=== PATIENT | female | born 1995 | race African-American/Black ===

== ENCOUNTER 2022-10-20 10:56 | Emergency (ER) | payer OTHER, SELFPAY ==
--- NOTE | ~2022-10-20 | US_ITS ---
EXAMINATION: US VENOUS ULTRASOUND WITH DOPPLER LOWER EXTREMITY, LEFT CLINICAL INFORMATION: Left calf tenderness and pain. COMPARISON: None available. TECHNIQUE: Ultrasound of the deep veins is performed from the hip to the calf with compression sonography and color and pulse Doppler assessment. Spectral analysis with color-flow imaging is performed. FINDINGS: There is normal venous compression and respiratory variation and augmented flow. The visualized common femoral vein, superficial femoral vein, profunda femoral vein, popliteal vein, and the trifurcation region shows no evidence of deep venous thrombosis. There is no significant popliteal fossa cyst. If the patient's symptoms persist, followup ultrasound in 5 days 7 days might be of value to exclude proximal propagation from a non-visualized calf vein. US/US venous duplex LE LT IMPRESSION: No DVT demonstrated in the left lower extremity.
[2022-10-20 11:00] VITALS: BP 120/79; PULSE 70; RESP 17; TEMP 36.6; O2SAT 100; BMI 28.0
--- NOTE | 2022-10-20 11:08 | ED.GENADULT ---
HPI - General Adult General Chief complaint: Extremity Problem Stated complaint: L leg pain Time Seen by Provider: 10/20/22 11:05 Source: patient Mode of arrival: ambulatory Limitations: no limitations History of Present Illness HPI narrative: Patient is a 26-year-old female with no significant past history presenting with left calf pain and swelling for the past week. She reports that her pain began 1 week ago, denies any initial injury or trauma. She states that over the past several days she has noted swelling to her left calf as well. She reports that she has a copper IUD, smokes marijuana daily, is unsure of any family history of clots or clotting disorders as she is not close with her family. She denies any recent surgeries or immobilization, denies any history of VTEs, hemoptysis. She denies any chest pain or shortness of breath. Related Data Allergies Allergy/AdvReac Type Severity Reaction Status Date / Time No Known Allergies Allergy Verified 10/20/22 11:15 Review of Systems Review of Systems: As per HPI Yes all other systems are reviewed and are negative Constitutional: Constitutional: Reports as per HPI [facility] Social History Social History Advance Directives: No Physical Exam ED Vital Signs: Vital Signs - 24 hr 10/20/22 11:00 10/20/22 11:40 Temperature 97.9 F 98.0 F Pulse Rate 70 68 Respiratory Rate 17 16 Blood Pressure 120/79 115/64 Pulse Oximetry 100 100 Oxygen Delivery Method Room Air Room Air BMI result Body Mass Index 28.0 Const General: cooperative, healthy appearing and no acute distress Orientation/consciousness: oriented to person, oriented to place, oriented to time and patient oriented x3 Limitations: no limitations [facility] Head: Yes normocephalic and Yes atraumatic Ears: external ears normal General nose exam: Normal external nose present Face and sinus: Yes face symmetric Mouth: oropharynx normal and moist mucous membranes Throat: Yes uvula midline Eyes Pupils: Equal, round and reactive pupils present Neck Neck: Yes normal visual inspection and Yes supple Resp Effort & Inspection: normal respiratory effort and able to speak in complete sentences Auscultation: clear to auscultation bilaterally Cardio Rate: regular rate Rhythm: regular rhythm Heart sounds: S1 normal heart sound present and S2 normal heart sound present GI Palpation (GI): Soft to palpation and nontender Auscultation: normoactive bowel sounds General: Yes no CVA tenderness Back/Spine/Pelvis Back: no CVA tenderness Skin General skin exam: elasticity normal and turgor normal Neuro General: oriented to person, oriented to place, oriented to time, patient oriented x3, moves all extremities, no focal motor deficits and CN's II-XI intact bilaterally Cranial nerves: Yes Equal, round and reactive pupils present Cognition (Neuro): normal cognition Extrem Other: negative Prado test General: Yes full ROM, Yes capillary refill normal, Yes no pedal edema and Yes calf tenderness (left) Left lower extremity: knee Details: tenderness Location: not of the popliteal fossa, lower leg Details: tenderness Location: of the posterior calf, localized swelling Location: of the proximal lower leg (mild) and other (positive Homans); no erythema, no palpable cords and no ecchymosis and foot Details: normal capillary refill and motor-sensory exam Details: light-touch normal; abnormal to inspection (mild swelling) Psych Mental Status: mental status grossly normal Affect: normal affect Thought process: Normal thought process present Course Course Course Narrative: 12:35 FINDINGS: There is normal venous compression and respiratory variation and augmented flow. The visualized common femoral vein, superficial femoral vein, profunda femoral vein, popliteal vein, and the trifurcation region shows no evidence of deep venous thrombosis. ? There is no significant popliteal fossa cyst. If the patient's symptoms persist, followup ultrasound in 5 days 7 days might be of value to exclude proximal propagation from a non-visualized calf vein. US/US venous duplex LE LT IMPRESSION: No DVT demonstrated in the left lower extremity. Advised patient of u/s results and discussed that based on physical exam findings, pain is likely related to calf strain. Will discharge home, advised Tylenol/ibuprofen, alternate ice/heat, gentle massage, follow up with PCP. Return precautions discussed at bedside. Medical Decision Making Medical Decision Making MDM Narrative: Patient is a 26-year-old female with no significant past history presenting with left calf pain and swelling for the past week. On exam patient is nontoxic appearing, VS WNL, no tachycardia or tachypnea, afebrile, mild left calf swelling and tenderness without erythema or calor, positive Homans. Patient is moderate Wells risk, so will obtain left lower extremity ultrasound. Concern for DVT vs muscle strain vs contusion. Unlikely cellulitis, abscess. No bullae, immunocompromise, or pain out of proporiton concerning for necrotizing fasciitis, no concern for compartment syndrome or achilles tendon rupture. Plan: LLE US, urine hcg Please refer to course for remaining clinical decision making. Differential Diagnosis Differential Diagnoses: The differential diagnosis associated with the presentation includes As above. Lab Data MDM Lab Attestation statement: I reviewed the patient's lab results. Labs: Lab Results 10/20/22 Range/Units 11:36 Urine Test NEGATIVE (NEGATIVE) Independent Interpretation I performed an independent interpretation of an: Ultrasound Interpretation: I independently reviewed the ultrasound and agree with the radiologist's interpretation. Radiology Impression Discussion of test interpretation with radiology: I have reviewed the radiologist's reading. Radiologist Impression: FINDINGS: There is normal venous compression and respiratory variation and augmented flow. The visualized common femoral vein, superficial femoral vein, profunda femoral vein, popliteal vein, and the trifurcation region shows no evidence of deep venous thrombosis. ? There is no significant popliteal fossa cyst. If the patient's symptoms persist, followup ultrasound in 5 days 7 days might be of value to exclude proximal propagation from a non-visualized calf vein. US/US venous duplex LE LT IMPRESSION: No DVT demonstrated in the left lower extremity. External Record Review External record reviewed: Inpatient record, Office record and Outpatient record Discharge Plan Discharge Clinical Impression: Strain of left calf muscle Patient Disposition: Home, Self-Care Instructions: Muscle Strain (DC) Additional Instructions: You were evaluated in the emergency department today for left calf pain. Your ultrasound did not show evidence of a blood clot. Please rest, alternate ice and heat, and resume normal activities as tolerated. You can take 600 mg ibuprofen every 6 hours or Tylenol 650 mg every 6 hours as needed for pain. If needed, you can alternate these medications so that you take 1 medication every 3 hours. For instance at noon take ibuprofen, then at 3:00 p.m. take Tylenol, then at 6:00 p.m. take ibuprofen. Please schedule an appointment for follow-up with her primary care provider this week. Return to the emergency department if you experience worsening pain, numbness, tingling, change of color in your toes, chest pain, shortness of breath, or any other concerning symptoms. Stand Alone Forms: Work/School Release
--- OUTSIDE RECORDS SUMMARY | 2022-10-20 11:31 | XMS_ITS | Continuity of Care Document ---
Author Name Unknown Organization [facility] Address [address] [place] [address]- Care Team Providers Care Clinical Data Management Manager Name Role Phone Grey GARZA, Yesy Zheng Primary Care Physicia n Encounter [facility] Date(s): 10/11/19 - 11/10/19 [facility] [address] [address]- [facility] Attending Physician: Sebastián Forde Admitting Physician: Sebastián Forde Referring Physician: Sebastián Forde Allergies, Adverse Reactions, Alerts Substance Reaction Severity Status Seafood Active Medications azithromycin 500 mg oral tablet 2 tablet = 1,000 mg, By Mouth, Once, # 2 tablet, 0 Refills, Soft Stop, 09/07/17 10:44:40 EDT Start Date: 09/07/17 Status: Ordered Nexplanon 68 mg subcutaneous implant 1 each = 68 mg, Subcutaneous Infusion, Once, 0 Refills, Maintenance, 08/11/16 13:01:26 Start Date: 08/11/16 Status: Ordered ParaGard intrauterine device 0 Refills, Maintenance, 09/18/19 16:13:00 EDT Start Date: 09/18/19 Status: Ordered Sulfamethoxazole For UTI, 0 Refills, Maintenance, 09/07/17 9:44:11 EDT Start Date: 09/07/17 Status: Ordered Social History Social History Type Response Smoking Status Former smoker, quit more than 30 days ago entered on: 09/18/19 Sex
--- OUTSIDE RECORDS SUMMARY | 2022-10-20 11:31 | XMS_ITS | Continuity of Care Document ---
Author Name Unknown [facility] Address [address] [address]- Care Team Providers Care Sales Management Trainee Name Role Phone Sharon Hoang MD, V Primary Care Physician [phone] Encounter [facility] Date(s): 05/17/22 - 06/16/22 [facility] [address] [address]- Attending Physician: Sebastián Forde Admitting Physician: Sebastián Forde Referring Physician: Sebastián Forde Allergies, Adverse Reactions, Alerts Substance Reaction Severity Status Seafood Active Medications ParaGard intrauterine device 0 Refills, Maintenance, 09/18/19 16:13:00 EDT Start Date: 09/18/19 Status: Ordered Problem List Condition Confirmation Course Effective Dates Status Health St atus Informant Multiple allergies Confirmed Active Allergic rhinitis Confirmed Active GERD (gastroesophageal reflux disease) Confirmed Active Reduced libido Confirmed Active Social History Social History Type Response Smoking Status Former smoker, quit more than 30 days ago entered on: 09/18/19 Sex Patient Care team information Care Team Personnel Name: Sharon Hoang MD, V Position: [facility] Primary Care Physician Member Role: PCP Address: Address: [address] [place] [address] Care Team Related Persons Name: JUAN MANUEL AKBAR Address: [address] [place] [address] Name: TAWANNA SAN Name: TIFFANIE YO Address: home [address] [place] [address] Name: TIFFANIE YO Name: MATILDE RUBY
--- OUTSIDE RECORDS SUMMARY | 2022-10-20 11:31 | XMS_ITS | Continuity of Care Document ---
Author Name Unknown Organization [facility] Address [address] [place] [address]- Care Team Providers Care Paper Sorter And Counter Name Role Phone Grey GARZA, Yesy Zheng Primary Care Physicia n Encounter [facility] Date(s): 12/25/20 - 01/24/21 [facility] [address] [place] [id number] Allergies, Adverse Reactions, Alerts Substance Reaction Severity Status Seafood Active Medications azithromycin 500 mg oral tablet 2 tablet = 1,000 mg, By Mouth, Once, # 2 tablet, 0 Refills, Soft Stop, 09/07/17 10:44:40 EDT Start Date: 09/07/17 Status: Ordered ParaGard intrauterine device 0 Refills, Maintenance, 09/18/19 16:13:00 EDT Start Date: 09/18/19 Status: Ordered Social History Social History Type Response Smoking Status Former smoker, quit more than 30 days ago entered on: 09/18/19 Sex
--- OUTSIDE RECORDS SUMMARY | 2022-10-20 11:31 | XMS_ITS | Continuity of Care Document ---
Author Name Unknown Organization [facility] Address [address] [place] [address]- Care Team Providers Care Flag Maker Name Role Phone Yesy Edmonds MD Primary Care Physicia n [place] [facility] [place] 07/09/19 - 07/09/[address] [address]- [facility] Discharge Disposition: A-D/C Walkout Attending Physician: Not on Staff, Attending MD Admitting Physician: Not on Staff, Admitting MD Referring Physician: Not on Staff, Referring MD Allergies, Adverse Reactions, Alerts Substance Reaction Severity Status Seafood Active Medications azithromycin 500 mg oral tablet 2 tablet = 1,000 mg, By Mouth, Once, # 2 tablet, 0 Refills, Soft Stop, 09/07/17 10:44:40 EDT Start Date: 09/07/17 Status: Ordered Nexplanon 68 mg subcutaneous implant 1 each = 68 mg, Subcutaneous Infusion, Once, 0 Refills, Maintenance, 08/11/16 13:01:26 Start Date: 08/11/16 Status: Ordered Sulfamethoxazole For UTI, 0 Refills, Maintenance, 09/07/17 9:44:11 EDT Start Date: 09/07/17 Status: Ordered Vital Signs Most recent to oldest [Reference Range]: 1 2 Weight 66.3 kg (07/09/19 8:12 PM) 66.3 kg (07/09/19 8:10 PM) Oxygen Saturation [94-100 %] 100 % (07/09/19 8:10 PM) 100 % (07/09/19 7:52 PM) Pulse Rate [55-90 bpm] 73 bpm (07/09/19 8:10 PM) 82 bpm (07/09/19 7:52 PM) Blood Pressure [90-138/55-84 mm Hg] 119/ 65mm Hg (07/09/19 8:10 PM) Respiratory Rate [16-30 br/min] 16 br/mi n (07/09/19 8:10 PM) 18 br/min (07/09/19 7:52 PM) Temperature [96.8-100.4 DegF] 98.4 DegF (07/09/19 8:10 PM) Mode of Delivery (Oxygen) Room air (07/09/19 8:10 PM) room air (07/09/19 7:52 PM) Blood pressure sites Arm, right (07/09/19 8:10 PM) Temperature Route Oral (07/09/19 8:10 PM) Dry Weight 66.3 kg (07/09/19 8:12 PM) 66.3 kg (07/09/19 8:10 PM) Weight Obtained Via Standing scale (07/09/19 8:10 PM) Dry Weight Obtained Via Standing scale (07/09/19 8:10 PM) Social History Social History Type Response Smoking Status Never smoker; Tobacc o user in household: No entered on: 05/30/14 Sex
--- OUTSIDE RECORDS SUMMARY | 2022-10-20 11:31 | XMS_ITS | Continuity of Care Document ---
Author Name Unknown Organization [facility] Address [address] [place] [address]- Care Team Providers Care Php Magento Developer Name Role Phone Viktor GARZA, Sharon Wooten Primary Care Physician Encounter [facility] Date(s): 03/04/22 - 03/11/22 [facility] [address] [place] [place] [address] Encounter Diagnosis GERD (gastroesophageal reflux disease)(Discharge Diagnosis) - 03/04/22 Multiple allergies(Discharge Diagnosis) - 03/04/22 Allergic rhinitis(Discharge Diagnosis) - 03/04/22 Reduced libido(Discharge Diagnosis) - 03/04/22 Attending Physician: Sharon Hoang MD, V Allergies, Adverse Reactions, Alerts Substance Reaction Severity Status Seafood Active Medications ParaGard intrauterine device 0 Refills, Maintenance, 09/18/19 16:13:00 EDT Start Date: 09/18/19 Status: Ordered Problem List Condition Confirmation Course Effective Dates Status Health St atus Informant Multiple allergies Confirmed Active Allergic rhinitis Confirmed Active GERD (gastroesophageal reflux disease) Confirmed Active Reduced libido Confirmed Active Diagnosis Diagnosis Type Effective Dates Health Status inical Service Informant GERD (gastroesophagea l reflux disease) Discharge Diagnosis 03/04/22 Multiple allergies Discharge Diagnosis 03/04/22 Allergic rhinitis Discharge Diagnosis 03/04/22 Reduced libido Discharge Diagnosis 03/04/22 Vital Signs Most recent to oldest [Reference Range]: 1 Height 168 cm (03/04/22 10:39 AM) Weight 71.36 kg (03/04/22 10:39 AM) Body Mass Index [18.5-24.99 kg/m2] 25.28 kg/m2 *H* (03/04/22 10:39 AM) Weight Obtained Via Patient/family state d (03/04/22 10:39 AM) Social History Social History Type Response Smoking Status Former smoker, quit more than 30 days ago entered on: 09/18/19 Sex Patient Care team information Personnel Name: Viktor GARZA, Sharon Wooten Address: Address: [address] [place] [id number]
--- OUTSIDE RECORDS SUMMARY | 2022-10-20 11:31 | XMS_ITS | Continuity of Care Document ---
Author Name Unknown Organization [facility] Address [address] [place] [address]- Care Team Providers Care Pension Agent Name Role Phone Grey GARZA, Yesy Zheng Primary Care Physicia n Encounter [facility] Date(s): 11/16/20 - 12/16/20 [facility] [address] [id number] Allergies, Adverse Reactions, Alerts Substance Reaction Severity [...]
--- OUTSIDE RECORDS SUMMARY | 2022-10-20 11:31 | XMS_ITS | Continuity of Care Document ---
Author Name Unknown Organization [facility] Address [address] [place] [address]- Care Team Providers Care Plating Inspector Name Role Phone Grey GARZA, Yesy Zheng Primary Care Physicia n En[facility] Date(s): 12/22/20 - [facility] [address] [address]- Attending Physician: Not on Staff, Attending MD Referring Physician: Not on Staff, Referring [...]
--- OUTSIDE RECORDS SUMMARY | 2022-10-20 11:31 | XMS_ITS | Continuity of Care Document ---
Author Name Unknown Organization [facility] Address [address] [place] [address]- Care Team Providers Care Cleat Blanker Name Role Phone Grey GARZA, Yesy Zheng Primary Care Physicia n Encounter [facility] [place] Date(s): 10/10/19 - 11/10/19 [facility] [address] [address]- [facility] Attending Physician: Not on Staff, Attending MD Referring Physician: Brynn Das CNM Allergies, Adverse Reactions, Alerts Substance Reaction Severity [...]
--- OUTSIDE RECORDS SUMMARY | 2022-10-20 11:31 | XMS_ITS | Continuity of Care Document ---
Author Name Unknown Organization [facility] Address [address] [place] [address]- Care Team Providers Care Distillery Supervisor Name Role Phone Grey GARZA, Yesy Zheng Primary Care Physicia n Encounter [facility] Date(s): 08/23/19 - 10/19/19 [facility] [address] [address]- [facility] Attending Physician: Angelica Crandall CNM Referring Physician: Grey GARZA, Yesy Zheng Allergies, Adverse Reactions, Alerts Substance Reaction Severity [...]
--- OUTSIDE RECORDS SUMMARY | 2022-10-20 11:31 | XMS_ITS | Continuity of Care Document ---
Author Name Unknown Organization [facility] Address [address] [place] [address] Care Team Providers Care First Coat Operator Name Role Phone Sharon Hoang MD, V Primary Care Physician [phone] En[facility] Date(s): 04/27/22 - 06/16/22 [facility] [address] [address]- Attending Physician: Not on Staff, Attending MD Referring Physician: Sharon Hoang MD, V Allergies, Adverse [...] Personnel Name: Sharon Hoang MD, V Position: S Primary Care Physician Member Role: PCP Address: Address: [address] [place] [id number] Care Team Related Persons Name: JUAN MANUEL AKBAR Address: home [address] [place] [address] Name: TAWANNA SAN Name: TIFFANIE YO Name: TIFFANIE YO Address: home [address] [place] [address] Name: MATILDE RUBY
--- OUTSIDE RECORDS SUMMARY | 2022-10-20 11:31 | XMS_ITS | Continuity of Care Document ---
Author Name Unknown Organization [facility] Address [address], [place] [address]- Care Team Providers Care Body Shop Mechanic Name Role Phone Sharon Hoang MD, V Primary Care Physician Encounter [facility] Date(s): 02/08/22 - 03/10/22 [facility] [address] [place] [address] Allergies, Adverse Reactions, Alerts Substance Reaction [...] Sex Patient Care team information Personnel Name: Sharon Hoang MD, V Address: Address: [address] [place] [id number]
--- OUTSIDE RECORDS SUMMARY | 2022-10-20 11:31 | XMS_ITS | Continuity of Care Document ---
Author Name Unknown Organization [facility] Address Unknown Care Team Providers Care Feed Mill Supervisor Name Role Phone Grey GARZA, Yesy Zheng Primary Care Physicia n [id number] Date(s): 01/11/21 - 02/10/21 [facility] Attending Physician: Sebastián Forde Admitting Physician: Sebastián Forde Referring Physician: AdmtrSebastián Allergies, Adverse Reactions, Alerts Substance Reaction Severity [...]
[2022-10-20 11:40] VITALS: BP 115/64; PULSE 68; RESP 16; TEMP 36.7; O2SAT 100
[2022-10-20 11:44] LABS: UPreg QC Valid YES; Urine Pregnancy NEGATIVE (NEGATIVE)
== END 2022-10-20 12:50 | disposition home or self-care (01) ==
PROVIDERS: Registered Nurse Emergency; Emergency Provider Emergency Medicine; PCP Internal Medicine
DX: M79.605 Pain in left leg (principal); R60.0 Localized edema; Z79.899 Other long term (current) drug therapy
CPT/HCPCS: 81025; 93971; 99283; 99284